=== PATIENT | male | born 1950 | race Caucasian/White ===

== ENCOUNTER 2019-11-07 21:15 | Emergency (ER) | payer BC ==
[2019-11-07] MEDS ORDERED: Tetan/Diph/Pertus SYR(Tdap)* 0.5 ML SYR(BOOSTRIX) use SYR contains LATEX IM ONE (21:36)
--- NOTE | 2019-11-07 22:08 | ED ---
Laceration/Wound HPI - HPI Summary HPI Summary: Patient complains of laceration to distal volar surface of the fifth digit of left hand while cutting garlic today. Tetanus status unknown. Denies any other pain, injury or symptoms. No anti-coag. - History of Current Complaint Stated Complaint: FINGER CUT PER PT Time Seen by Provider: 11/07/19 21:33 Hx Obtained From: Patient Mechanism of Injury: Sharp/Blunt Trauma Onset Severity: Mild Current Severity: Mild Pain Intensity: 2 Pain Scale Used: 0-10 Numeric Associated Signs & Symptoms: Pain - Allergy/Home Medications Allergies/Adverse Reactions: Allergies Allergy/AdvReac Type Severity Reaction Status Date / Time ENVIRONMENTAL Allergy Rash Uncoded 11/07/19 21:18 PMH/Surg Hx/FS Hx/Imm Hx Endocrine/Hematology History: Reports: Hx Diabetes - BORDERLINE Cardiovascular History: Denies: Hx Pacemaker/ICD Respiratory History: Denies: Other Respiratory Problems/Disorders History: Denies: Hx Dialysis Sensory History: Reports: Hx Contacts or Glasses - READING Denies: Hx Hearing Aid Opthamlomology History: Reports: Hx Contacts or Glasses - READING EENT History: Denies: Hx Deafness Neurological History: Denies: Hx Dementia - Surgical History Surgery Procedure, Year, and Place: VASECTOMY, 2010 Hx Anesthesia Reactions: No Infectious Disease History: No Infectious Disease History: Denies: Traveled Outside the [place] in Last 30 Days - Family History Known Family History: Negative: Blood Disorder - Social History Alcohol Use: Daily Alcohol Amount: 1-2 DAILY Substance Use Type: Reports: Marijuana Substance Use Comment - Amount & Last Used: DAILY Smoking Status (MU): Former Smoker Amount Used/How Often: SOCIALLY Have You Smoked in the Last Year: No Review of Systems Constitutional: Negative Eyes: Negative ENT: Negative Cardiovascular: Negative Respiratory: Negative Gastrointestinal: Negative Genitourinary: Negative Musculoskeletal: Negative Skin: Other Neurological: Negative Psychological: Normal All Other Systems Reviewed And Are Negative: Yes Physical Exam - Summary Physical Exam Summary: Avulsion laceration of volar surface of distal tip of fifth digit of left hand. Wrapped in Surgicel and, pain. One suture administered on portion that resembles laceration. Triage Information Reviewed: Yes Vital Signs On Initial Exam: Initial Vitals Temp Pulse Resp BP Pulse Ox 98.2 F 84 15 161/99 97 11/07/19 21:16 11/07/19 21:16 11/07/19 21:16 11/07/19 21:16 11/07/19 21:16 Vital Signs Reviewed: Yes Appearance: Positive: Well-Appearing Skin: Positive: Warm Head/Face: Positive: Normal Head/Face Inspection Eyes: Positive: Normal Neck: Positive: Supple Respiratory/Lung Sounds: Positive: Clear to Auscultation Cardiovascular: Positive: Normal Abdomen Description: Positive: Nontender Musculoskeletal: Positive: Normal Neurological: Positive: Normal Psychiatric: Positive: Normal AVPU Assessment: Alert - Delisa Coma Scale Best Eye Response: 4 - Spontaneous Best Motor Response: 6 - Obeys Commands Best Verbal Response: 5 - Oriented Coma Scale Total: 15 Procedures - Sedation Patient Received Moderate/Deep Sedation with Procedure: No - Laceration/Wound Repair 1 Location: upper extremity Description: Linear Anesthesia: Digital, 1.0% Length, Depth and Shape: 2cm x .5cm Irrigated w/ Saline (ccs): 300 Laceration/Wound Explored: clean Debridement: minimal Number of Sutures: 1 - 4. 0 Ethilon Layer Closure?: No Sterile Dressing Applied?: No Diagnostics - Vital Signs Vital Signs Temp Pulse Resp BP Pulse Ox 11/07/19 21:16 98.2 F 84 15 161/99 97 - Laboratory Lab Statement: Any lab studies that have been ordered have been reviewed, and results considered in the medical decision making process. Laceration Repair Course/Dx - Course Course Of Treatment: Patient complains of laceration to distal volar surface of the fifth digit of left hand while cutting garlic today. Tetanus status unknown. Denies any other pain, injury or symptoms. No anti-coag. Vital signs within normal limits. One suture placed. Remaining tissue covered with Surgicel and wrapped with Coban pressure dressing, and will be allowed to heal by secondary intention. - Clinical Impression Provider Diagnoses: Finger laceration Discharge ED - Sign-Out/Discharge Documenting (check all that apply): Patient Departure - Discharge Plan Condition: Stable Disposition: HOME Patient Education Materials: Care For Your Stitches (ED), Finger Laceration (ED ) Referrals: Desiree Muse MD [Primary Care Provider] - Additional Instructions: Remove suture in 2 days. Remove dressing Saturday morning. You may then wash wound with warm running water and soap. Do not submerge underwater for 5 days. Keep clean and dry and protected while healing. Return to the ED for any new or worsening symptoms. - Billing Disposition and Condition Condition: STABLE Disposition: Home
[2019-11-07 22:39] VITALS: BP 156/97
== END 2019-11-07 22:25 | disposition home or self-care (01) ==
LOC: ED 21:15
DX: S61.217A Laceration without foreign body of left little finger without damage to nail, initial encounter (principal); W45.8XXA Other foreign body or object entering through skin, initial encounter; Y93.G1 Activity, food preparation and clean up; Y92.9 Unspecified place or not applicable; Z23 Encounter for immunization; R73.03 Prediabetes; Z87.891 Personal history of nicotine dependence
CPT/HCPCS: 11765; 12001; 90471; 90715; 99282

== ENCOUNTER 2019-12-27 22:21 | Observation (INO) | payer BC ==
[2019-12-27] MEDS ORDERED: Aspirin 81 mg CHEW TAB* 81 MG TAB.CHEW PO ONE (22:38)
--- OUTSIDE RECORDS SUMMARY | 2019-12-27 22:50 | XMS REPORT | Continuity of Care Document ---
:1950 External Reference #:[id number] Author Name Edgardo Telles MD (transmitted by agent of provider Marcela Cross ) Address [address] [place] [address] Care Team Providers Name Role Phone Desiree Saravia MD - Family Care Team Information Chief Executive Or Managing Director [phone] Medicine Problems Description No Information Available Social History Type Date Description Comments Sex Unknown ETOH Use Occasionally consumes alcohol Tobacco Use Start: Unknown End: Patient is a former smoker Unknown Smoking Status Reviewed: 12/03/19 Patient is a former smoker Exercise Type/Frequency Exercises sporadically Allergies, Adverse Reactions, Alerts Description No Known Drug Allergies Medications Active Medications SIG Qnty Indications Ordering Provider Date Ibu-200 as needed Unknown 200mg Tablets Aspirin 81 1 by mouth every Unknown 81mg Tablets day DR Immunizations Description No Information Available Vital Signs Date Vital Result Comment 12/03/2019 10:51am Height 72 inches 6'0" Weight 197.00 lb Heart Rate 68 /min BP Systolic 152 mmHg BP Diastolic 92 mmHg Respiratory Rate 18 /min Pain Level 5 BMI (Body Mass Index) 26.7 kg/m2 08/28/2016 8:42am Height 72 inches 6'0" Weight 199.00 lb Heart Rate 66 /min BP Systolic 140 mmHg BP Diastolic 86 mmHg Respiratory Rate 16 /min Body Temperature 97.9 F BMI (Body Mass Index) 27.0 kg/m2 Results Description No Information Available Procedures Date Code Description Status 12/03/2019 Inj/Aspir Major JT Or Bursa W/ US Completed 12/03/2019 Inject/Drain Joint/Bursa Major W/O US Completed 12/03/2019 Inject/Drain Joint/Bursa Small W/O US Completed Medical Devices Description No Information Available Encounters Description No Information Available Assessments Date Code Description Provider 12/03/2019 M17.12 Unilateral primary osteoarthritis, left Edgardo Telles MD knee 12/03/2019 M25.541 Pain in joints of right hand Edgardo Telles MD 12/03/2019 M71.22 Synovial cyst of popliteal space [[place]], Edgardo Telles MD left knee Plan of Treatment 12/03/2019 - Edgardo Telles, MDM17.12 Unilateral primary osteoarthritis, left kneeFollow up:Follow up: as [id number] Pain in joints of right handM71.22 Synovial cyst of popliteal space [[place]], left knee Functional Status Description No Information Available Mental Status Description No Information Available Referrals Description No Information Available
--- OUTSIDE RECORDS SUMMARY | 2019-12-27 22:50 | XMS REPORT | Continuity of Care Document ---
:1950 External Reference #:[id number] Author Name Gareth Wallis MD Address [address] [place] [address] Care Team Providers Name Role Phone Desiree Saravia MD - Family Care Team Information Radio Tester [phone] Medicine Problems Active Problems Provider Date Mixed hyperlipidemia Onset: 02/25/2013 Benign prostatic hypertrophy without Onset: 02/25/2013 outflow obstruction Overweight Onset: 02/25/2013 Allergy to other foods Gareth Wallis MD Onset: 11/11/2019 Atopic dermatitis Gareth Wallis MD Onset: 11/11/2019 Social History Type Date Description Comments Sex Unknown Tobacco Use Start: Unknown Patient is a current smoker, smokes some marijuana days Smoking Status Reviewed: 11/11/19 Patient is a current smoker, smokes some marijuana days Allergies, Adverse Reactions, Alerts Description No Information Available Medications Active Medications SIG Qnty Indications Ordering Date Provider Triamcinolone Apply A Small Amount 80units Desiree Saravia 06/16/2018 Acetonide To Affected Area Cristel Ruiz MD 0.1% Cream Times A Day Alternating Every 20 Days With Triamcinolone Ointment Aspirin 81 Low Dose Unknown 81mg Che[place]abs Immunizations CPT Code Status Date Vaccine Lot # [id number] Given 11/04/2019 Pneumococcal Conjugate Vaccine 13 Valent For Intramuscular Use 11998 Given 10/07/2019 Fluarix Quadrivalent, Preservative Free 0.5mL 39899 Given 10/02/2018 Influenza Vaccine Split Virus Preservative Free [place] Use 85460 Given 09/04/2017 Fluarix Quadrivalent, Preservative Free 0.5mL 54368 Given 09/04/2016 Fluarix Quadrivalent, Preservative Free 0.5mL 65543 Given 02/25/2013 Tetanus, Diphtheria Toxoids/Acellular Pertussis Vaccine 7 [place] > [id number] Given 02/12/2003 Td Preservative Free For Use In Individuals 7 Yrs Or Older 84938 Given 10/25/1992 Tetanus Toxoid Adsorbed, For Intramuscular Use Vital Signs Date Vital Result Comment 11/11/2019 10:27am BP Systolic 118 mmHg BP Diastolic 78 mmHg Height 71.50 inches 5'11.50" Weight 189.00 lb BMI (Body Mass Index) 26.0 kg/m2 Heart Rate 64 /min Respiratory Rate 16 /min O2 % BldC Oximetry 98 % 11/04/2019 9:31am Weight 189.00 lb Results Test Acquired Date Facility Test Result H/L Range Note Laboratory test 11/11/2019 [facility] <pending> finding Order Order 11/11/2019 [facility] Skin Test <pending> Food Lab Results 11/04/2019 N2N/[facility]D Import Sodium 139 mmol/L 135-145 Potassium 4.1 mmol/L 3.5-5.0 Chloride 103 mmol/L 101-111 Co2 Carbon Dioxide 29 mmol/L 22-32 Anion Gap 7 mmol/L 2-11 Glucose 113 mg/dL High 70-100 Blood Urea Nitrogen 15 mg/dL 6-24 Creatinine 1.02 mg/dL 0.67-1.17 BUN/Creatinine Ratio 14.7 1 8-20 Calcium 9.3 mg/dL 8.6-10.3 Total Protein 7.4 g/dL 6.4-8.9 Albumin 4.5 g/dL 3.2-5.2 Globulin 2.9 g/dL 2-4 Albumin/Globulin Ratio 1.6 1 1-3 Total Bilirubin 0.40 mg/dL 0.2-1.0 Alkaline Phosphatase 58 U/L 34-104 Alt 15 U/L 7-52 Ast 16 U/L 13-39 Egfr Non- 72.8 1 Egfr 88.1 1 1 Lipid Profile (Trig/Chol/HDL) 11/04/2019 N2N/[facility]D Import Triglycerides 107 mg/dL 2 Cholesterol 220 mg/dL 3 HDL Cholesterol 48.2 mg/dL 4 LDL Cholesterol 150 mg/dL 5 Lab Results 11/04/2019 N2N/[facility]D Import Hemoglobin A1c (Glyco HGB) 5.5 % 4.0-5.6 6 PSA Screening 1.935 ng/mL 0-4.000 7 Lyme Screen W/ Reflex To WB <pending> 1 Because ethnic data is not always readily available, this report includes an eGFR for both -Americans and non- Americans. The National Kidney Disease Education Program (NKDEP) does not endorse the use of the MDRD equation for patients that are not between the ages of 18 and 70, are , have extremes of body size, muscle mass, or nutritional status, or are non- or non-. According to the National Kidney Foundation, irrespective of diagnosis, the stage of the disease is based on the level of kidney function: Stage Description GFR(mL/min/1.73 m(2)) 1 Kidney damage with normal or decreased GFR 90 2 Kidney damage with mild decrease in GFR 60-89 3 Moderate decrease in GFR 30-59 4 Severe decrease in GFR 15-29 5 Kidney failure <15 (or dialysis) 2 Desirable: <150 Borderline High: 150-199 High: 200-499 Very High: >500 3 Desirable: <200 Borderline High: 200-239 High: >239 4 Low: <40 Desirable: 40-60 High: >60 5 Desirable: <100 Near Optimal: 100-129 Borderline High: 130-159 High: 160-189 Very High: >189 6 Therapeutic target for the treatment of diabetes mellitus patients is <7% HBA1C, and in selective patients <6.0%. Please refer to [place] [employer] diabetic care guidelines for further information. 7 Serum levels of PSA measured using the [employer] [place] DXI Hybritech immunoassay should not be interpreted as absolute evidence of the presence or absence of disease. The PSA value should be used in conjunction with other pertinent clinical diagnostic procedures. The values obtained with different assay methods or kits cannot be used interchangeably. Procedures Date Code Description Status 11/11/2019 81419 Allergy Tests Percutaneous W/ Allergenic Extracts Completed Medical Devices Description No Information Available Encounters Description No Information Available Assessments Date Code Description Provider 11/11/2019 L20.9 Atopic dermatitis, unspecified Gareth Wallis MD 11/11/2019 Z91.018 Allergy to other foods Gareth Wallis MD Plan of Treatment No Information Available Functional Status Description No Information Available Mental Status Description No Information Available Referrals Description No Information Available
[2019-12-27] MEDS: Nitroglycerin TAB 0.4 MG* 0.4 MG TAB SL ONE (22:54)
--- NOTE | 2019-12-27 23:03 | ED ---
Back Pain - HPI Summary HPI Summary: The patient is a 69 y/o male presenting to [facility] accompanied by with a chief complaint of back and bilateral upper extremity pain this afternoon. He reports that last night he felt myalgias in the upper extremities. The pains resolved with Ibuprofen use until it returned today around 1500 with mid-back pain. At its worst, the pain was rated 6/10 in severity until it completely subsided with Ibuprofen a few hours ago. He denies any fever, nausea, diaphoresis, chest pain, or bowel or bladder incontinence. He notes a chronic cough with marijuana use, but the cough has not changed recently. He has never had a stress test. He had his flu vaccine this season. He notes that he has never had this symptoms before. PMHx: DM. No cardiac FHx. Former smoker, daily EtOH (some tonight), marijuana use. Medications reviewed, one baby ASA daily. Allergies noted. - History of Current Complaint Chief Complaint: EDBackInjuryPain Stated Complaint: ARMS AND BACK PAIN PER PT Time Seen by Provider: 12/27/19 22:38 Hx Obtained From: Patient Onset/Duration: Sudden Onset, Lasting Minutes, Resolved Onset/Duration: Started Days Ago, Resolved Back Pain Location: Is Discrete @ - mid-back, arms Severity Initially: Moderate Severity Currently: None Pain Intensity: 0 Pain Scale Used: 0-10 Numeric Character: Aching Aggravating Symptom(s): Nothing Alleviating Symptom(s): OTC Meds Associated Signs And Symptoms: Negative: Fever, Bladder Incontinence, Bowel Incontinence, Other - chest pain, shortness of breath, cough, nausea, diaphoresis - Allergies/Home Medications Allergies/Adverse Reactions: Allergies Allergy/AdvReac Type Severity Reaction Status Date / Time Fish Containing Products Allergy See Comment Verified 12/28/19 01:26 ENVIRONMENTAL Allergy Rash Uncoded 12/28/19 01:26 Home Medications: Home Medications Aspirin 81 mg PO QAM 12/28/19 [History Confirmed 12/28/19] Sildenafil Citrate [Viagra] 100 mg PO WEEKLY PRN 12/28/19 [History Confirmed 02/11] PMH/Surg Hx/FS Hx/Imm Hx Endocrine/Hematology History: Reports: Hx Diabetes - BORDERLINE Cardiovascular History: Denies: Hx Pacemaker/ICD Respiratory History: Denies: Other Respiratory Problems/Disorders History: Denies: Hx Dialysis Sensory History: Reports: Hx Contacts or Glasses - READING Denies: Hx Deafness, Hx Hearing Aid Opthamlomology History: Reports: Hx Contacts or Glasses - READING Neurological History: Denies: Hx Dementia - Surgical History Surgical History: Yes Surgery Procedure, Year, and Place: VASECTOMY, 2010 Hx Anesthesia Reactions: No Infectious Disease History: No Infectious Disease History: Denies: Traveled Outside the [place] in Last 30 Days - Family History Known Family History: Positive: Other - cancer Negative: Cardiac Disease, Blood Disorder - Social History Alcohol Use: Daily Alcohol Amount: 1-2 DAILY - wine today Hx Substance Use: Yes Substance Use Type: Reports: Marijuana Substance Use Comment - Amount & Last Used: DAILY Hx Tobacco Use: Yes Smoking Status (MU): Former Smoker Amount Used/How Often: SOCIALLY Have You Smoked in the Last Year: No - Additional Comments History Additional Comments: diabetes Review of Systems - ROS Summary Review of Systems Summary: Home Medications Medication Instructions Recorded Confirmed Type Ibuprofen TAB* [Motrin TAB* 600 MG] 600 mg PO Q4H PRN 08/14/16 08/20/16 History HYDROcodone/ACETAMIN 5-325 MG* 1 - 2 tab PO Q4H PRN #20 tab MDD 12 08/20/16 Rx [[place] 5-325 TAB*] Negative: Fever, Skin Diaphoresis Negative: Chest Pain Negative: Shortness Of Breath, Cough Negative: Nausea, Other - bowel incontinence Negative: incontinence Positive: Myalgia - back, arms All Other Systems Reviewed And Are Negative: Yes Physical Exam - Summary Physical Exam Summary: General: Well-developed, Well-nourished male. No acute distress. HEENT: Normocephalic, Atraumatic. Eyes: Conjuctiva normal, PERRL. Oropharynx: Clear, mucous membranes moist, (-) exudates. Neck: Soft, FROM, (-) lymphadenopathy, (-) thyromegaly, (-) JVD. Cardiovascular: Normal sinus rhythm, (-) murmur. Lungs: Clear to auscultation bilaterally (-) wheezes, (-) rales, (-) rhonchi. Abdomen: Soft, non-tender, non-distended, (-) organomegaly, normal bowel sounds. Back: Patient indicates pain at T6-T8 but there is no tenderness there now, (-) CVA tenderness Extremities: No edema. Skin: Warm, dry, (-) rash. Neuro: Alert and oriented x3, moves all extremities equally. No ataxia. No gait disturbance. No sensory deficit. No amnesia. Psychiatric: Mood normal, affect normal. Triage Information Reviewed: Yes Vital Signs On Initial Exam: Initial Vitals Temp Pulse Resp BP Pulse Ox 98.1 F 82 15 128/91 94 12/27/19 22:29 12/27/19 22:29 12/27/19 22:29 12/27/19 22:29 12/27/19 22:29 Vital Signs Reviewed: Yes Procedures - Sedation Patient Received Moderate/Deep Sedation with Procedure: No Diagnostics - Vital Signs Vital Signs Temp Pulse Resp BP Pulse Ox 12/27/19 22:29 98.1 F 82 15 128/91 94 - Laboratory Result Diagrams: 12/27/19 23:00 12/27/19 23:00 Lab Statement: Any lab studies that have been ordered have been reviewed, and results considered in the medical decision making process. - Radiology CXR Radiology Interpretation Completed By: ED Physician Summary of Radiographic Findings: No infiltrate. No pleural effusion. ED physician has reviewed and interpreted this report. Pending official read. - EKG 2232 Cardiac Rate: NL - 71 BPM EKG Rhythm: Sinus Rhythm Summary of EKG Findings: EKG at 2232 reveals normal sinus rhythm with rate of 71 BPM, ST elevations in V3, no STEMI. This EKG was reviewed and interpreted by Dr. Nguyen. Re-Evaluation - Re-Evaluation First Eval Re-Evaluation Time: 00:20 Comment: Patient's back pain has returned 4/10 in severity, will administer NTG and ASA Second Eval Re-Evaluation Time: 00:40 Comment: We will order a Back Pain Course/Dx - Course Course Of Treatment: 69-year-old male presents to emergency room with bilateral arm pain that goes across his upper chest. Also in his upper back. Denies any known trauma. Started last night, seemed to go away with pain medication. Came back today. Much worse tonight. Also has had some fatigue lately. No fevers chills or cough. No shortness of breath. No history of coronary artery disease. No previous stress test. Physical exam within normal limits. Workup demonstrates elevated ST in V3. Negative troponin. Patient referred to hospitalist for admission. - Diagnoses Provider Diagnoses: Acute coronary syndrome - Provider Notifications Discussed Care Of Patient With: Chely Liz - hospitalist Time Discussed With Above Provider: 00:35 Instructed by Provider To: Other - I discussed the patients case with Dr. Liz, who accepts the patient for admission. Discharge ED - Sign-Out/Discharge Documenting (check all that apply): Patient Departure - Patient accepted for admission by Dr. Liz. - Discharge Plan Condition: Stable Disposition: ADMITTED TO [facility] - Billing Disposition and Condition Condition: STABLE Disposition: Admitted to [facility] - Attestation Statements Document Initiated by Thea: Yes Documenting Scribe: Jeniffer Mckeon Provider For Whom Thea is Documenting (Include Credential): Dr. Samantha Nguyen MD Scribe Attestation: Jeniffer Musa scribed for Dr. Samantha Nguyen MD on 01/01/20 at 0218. Scribe Documentation Reviewed: Yes Provider Attestation: The documentation as recorded by the Jeniffer barnes accurately reflects the service I personally performed and the decisions made by me, Dr. Samantha Nguyen MD Status of Scribe Document: Viewed
[2019-12-27 23:12] LABS: ABS Lymphocytes 0.8 10^3/ul (1.0-4.8); ABS Monocytes 0.3 10^3/ul (0-0.8); ABS Neutrophils 5.8 10^3/ul (1.5-7.7); Eosinophil % 0.6 %; Hematocrit 40 % (42-52); Hemoglobin 13.7 g/dL (14.0-18.0); Lymphocyte % 11.8 %; Mean Corpuscular HGB Conc 34 g/dL (31-36); Mean Corpuscular Hemoglobin 32 pg (27-31); Mean Corpuscular Volume 93 fL (80-94); Mean Platelet Volume 7.6 fL (7.4-10.4); Nucleated Red Blood Cells % 0.1; Platelet Count 223 10^3/uL (150-450); Red Blood Count 4.28 10^6 /uL (4.18-5.48); Red Cell Distribution Width 14 % (10-15)
[2019-12-27 23:18] LABS: INR 0.85 (0.82-1.09)
[2019-12-27 23:30] LABS: Albumin 3.8 g/dL (3.2-5.2); Albumin/Globulin Ratio 1.5 (1-3); BUN/Creatinine Ratio 25.3 (8-20); Calcium 8.6 mg/dL (8.6-10.3); EGFR African American 91.2 (>60); EGFR Non-African American 75.4 (>60); Globulin 2.5 g/dL (2-4); Total Bilirubin 0.4 mg/dL (0.2-1.0); Total Protein 6.3 g/dL (6.4-8.9)
[2019-12-28] MEDS: Nitroglycerin TAB 0.4 MG* 0.4 MG TAB SL ONE (00:22)
[2019-12-28] MEDS ORDERED: Nitroglycerin TAB 0.4 MG* 0.4 MG TAB SL ONE (00:27)
--- NOTE | 2019-12-28 04:36 | ADMNOTE ---
Subjective Interval History: 69 yo male presented to the ED with back pain radiating to his left arm. No trauma, no tenderness to his spine. No tenderness on ROM. No hx of arthritis. Pain felt deeper to his spine, he was restless for a bit, took some ibuprofen and was able to go to sleep. The pain returned and his friend who is a physician , urged him to go get evaluated in the ED. No shortness of breath, no dizziness. He did feel a bit of chest pain at some point but it was mostly mid- back pain. His vitals are normal. EKG showed repolarization (confirmed with cardiology). Initial troponins were 0. Family History: Unchanged from Admission Social History: Unchanged from Admission Past Medical History: Unchanged from Admission Review of Systems - Measurements Intake and Output: Intake and Output Last 24 Hours 12/25/19 12/26/19 12/27/19 12/28/19 06:59 06:59 06:59 06:59 Weight 192 lb 1.6 oz - Review of Systems Constitutional Symptoms: Negative: Weight Gain, Weight Loss, Weakness, Fatigue, Fever, Night Sweats, Unexplained Falls, Other Dermatology: Negative: Normal, Rash, Skin Lesions, Cancer, Skin Lumps, Other HEENT: Negative: Normal, Change in Hearing, Vertigo, Dental Problems, Tinnitus, Sinus Problem, Other Eyes: Negative: Normal, Change in Vision, Double Vision, Eye Pain, Glaucoma, Cataract, Contacts or Glasses, Other Thyroid: Negative: Normal, Goiter, Thyroid Nodule, Cold Intolerance, Heat Intolerance , Sweatiness, Tremor, Frequent Defecation, Constipation, Palpitations, Primary Hypothyroidism, Primary Hyperthyroidism, Weight Loss, Weight Gain, Change in Skin/Hair, Change in Menstruation, Radiation Exposure, Other Pulmonary: Negative: Normal, Cough, Sputum, Hemoptysis, Wheezing, Respiratory Distress, Shortness of Breath, COPD, Asthma, Exercise Intolerance, Home Oxygen, Other Cardiology: Negative: Normal, Chest Pain, Shortness of Breath, Palpitations, Swelling of Ankles, Peripheral Vascular Dis, Edema, Faintness, Syncope, Claudication, Proximal NocturnalDyspnea, Orthopnoea, Other Gastroenterology: Negative: Normal, Abdominal Pain, Nausea, Vomiting, Anorexia, Indigestion, Difficulty Swallowing, Heartburn, Constipation, Diarrhea, Blood in Stools, Change in Bowel Habits, Haematemesis, Melena, Other Genitourinary - Male: Negative: Prostatism, Erectile Dysfunction, Family Hx of Prostate Cancer, Other Musculoskeletal: Positive: Low Back Pain Endocrinology: Negative: Normal, Thyroid Problems, Adrenal Problems, Gonadal Problems, Family Hx Endocrine Disorders, Obesity, Diabetes Mellitus, Hyperglycemia, Hx Hypoglycemia, Diabetic Foot Ulcers, Calluses, Hirsutism, Menstrual Abnormalities , Polydipsia, Polyuria, Gonadal Problems, Gynecomastia, Pituitary disease, Other Hematologic/Lymphatic: Negative: Anemia, Easy Bruising, Hx Leukemia, Hx Lymphoma, Use of Anticoagulant, Use of Antiplatelet Drugs, Other Neurology: Negative: Normal, Headache, Migraines, Change in Vision, Diplopia, Dizziness , Change in Balancing, Change in Coordination, Change in Memory, Change in Speech, Change in Sphincter Function, Change in Walking, Numbness\Paresthesiae, Unexplained Weakness, Hx of Stroke\TIA, Hx of Seizures, Other Psychiatry: Negative: Normal, Depression, Anxiety, Depressed Mood, Anhedonia, Sexual Dysfunction, Weight Change, Guilt Feelings, Tearfulness, Unusual Fatigue, Unusual Anxiety, Suicidal Ideation, Hypomania, Eating Disorders, Other Objective Vital Signs - 8 hr 12/27/19 12/27/19 12/27/19 22:29 22:47 23:00 Temperature 98.1 F Pulse Rate 82 Respiratory 15 13 14 Rate Blood Pressure 128/91 151/77 (mmHg) O2 Sat by Pulse 94 Oximetry 12/27/19 12/27/19 12/27/19 23:02 23:17 23:32 Temperature Pulse Rate Respiratory 23 13 13 Rate Blood Pressure 109/72 105/71 118/68 (mmHg) O2 Sat by Pulse Oximetry 12/27/19 12/28/19 12/28/19 23:47 00:00 00:02 Temperature Pulse Rate Respiratory 11 17 24 Rate Blood Pressure 114/70 116/72 (mmHg) O2 Sat by Pulse Oximetry 12/28/19 12/28/19 12/28/19 00:20 00:32 00:47 Temperature Pulse Rate Respiratory 17 18 15 Rate Blood Pressure 114/71 110/72 118/72 (mmHg) O2 Sat by Pulse Oximetry 12/28/19 12/28/19 12/28/19 01:00 01:02 01:17 Temperature Pulse Rate Respiratory 20 19 Rate Blood Pressure 121/71 122/72 (mmHg) O2 Sat by Pulse Oximetry 12/28/19 12/28/19 12/28/19 01:32 01:47 02:00 Temperature Pulse Rate Respiratory 13 16 13 Rate Blood Pressure 116/70 130/90 (mmHg) O2 Sat by Pulse Oximetry 12/28/19 12/28/19 12/28/19 02:02 02:03 02:17 Temperature 97.5 F Pulse Rate 73 Respiratory 11 17 13 Rate Blood Pressure 118/75 130/90 136/83 (mmHg) O2 Sat by Pulse 93 Oximetry 12/28/19 02:46 Temperature 97.9 F Pulse Rate 72 Respiratory 16 Rate Blood Pressure 114/63 (mmHg) O2 Sat by Pulse 95 Oximetry Oxygen Devices in Use Now: None Appearance: NID Eyes: No Scleral Icterus, PERRLA Ears/Nose/Mouth/Throat: NL Teeth, Lips, Gums, Mucous Membranes Moist Neck: NL Appearance and Movements; NL JVP, Trachea Midline Respiratory: Symmetrical Chest Expansion and Respiratory Effort, Clear to Auscultation, Clear to Percussion Cardiovascular: NL Sounds; No Murmurs; No JVD Abdominal: NL Sounds; No Tenderness; No Distention Lymphatic: No Cervical Adenopathy Extremities: No Edema, No Clubbing, Cyanosis, - - no spinal tenderness. No tenderness with active ROM. Skin: No Rash or Ulcers, No Nodules or Sclerosis Neurological: Alert and Oriented x 3 Result Diagrams: 12/27/19 23:00 12/27/19 23:00 Assess/Plan/Problems-Billing Assessment: - Patient Problems (1) Back pain Current Visit: Yes Status: Acute Code(s): M54.9 - DORSALGIA, UNSPECIFIED SNOMED Code(s): 515651112 Comment: sudden back pain, no trauma. No ROM tenderness, no spinal tenderness. EKG was a bit concerning, cardiology said this was repolarization and recommended to repeat a new EKG and trend troponins to be prudent (2) Full code status Current Visit: Yes Status: Acute Code(s): Z78.9 - OTHER SPECIFIED HEALTH STATUS SNOMED Code(s): 388714058 (3) DVT prophylaxis Current Visit: Yes Status: Acute Code(s): Z29.9 - ENCOUNTER FOR PROPHYLACTIC MEASURES, UNSPECIFIED SNOMED Code(s): 187126308 Comment: ambulation
[2019-12-28] MEDS ORDERED: Acetaminophen TAB* 325 MG PO PRN (08:14)
[2019-12-28] MEDS ORDERED: Iohexol 350* (CONTRAST) 500 ML MDV IV ONE (10:42)
[2019-12-28 16:19] VITALS: BP 138/80
--- NOTE | 2019-12-29 00:04 | DS ---
CC: Dr. Desiree Saravia * DISCHARGE SUMMARY: DATE OF ADMISSION: 12/27/19 DATE OF DISCHARGE: 12/28/19 PRIMARY CARE PROVIDER: Dr. Desiree Saravia. ATTENDING PROVIDER: Genie Laughlin MD * (DICTATED BY JENNIFER HAWK) PRIMARY DIAGNOSIS: Back pain, likely musculoskeletal. SECONDARY DIAGNOSES: 1. Hyperlipidemia. 2. Benign prostatic hyperplasia. HISTORY OF PRESENT ILLNESS/HOSPITAL COURSE: Graeth Meyer is a 69-year-old white male with past medical history significant for hyperlipidemia and BPH, who presented to the emergency department due to his friend's recommendation, who is a physician, due to upper back pain between the scapulae as well as bilateral upper extremity pain. The patient tells me that he had multiple episodes of this pain in between his shoulder blades leading up to this admission, but it always lasted approximately an hour and on an onset of pain, he would take Tylenol and after the Tylenol, the pain would go away. He did notice that the pain does not change with his positioning and the bilateral upper extremity pain has only occurred one other time. He is not having associated chest pain, dyspnea, dizziness, lightheadedness, chest palpitations, changes in vision when this is occurring. He had negative troponins x3 in the hospital and his EKGs were without any ischemic changes. I did perform a CTA of the chest and thorax, which was negative for dissection and by the day of discharge, the patient was not symptomatic. Given some of his risk factor of hyperlipidemia and his age, I do think it was appropriate for him to have an outpatient stress test, which has already been scheduled for tomorrow. While he is in the hospital, he did receive 324 mg of aspirin in the emergency department and overall, he had great blood pressures throughout his hospital stay. The patient had no abnormalities on telemetry and he is monitored on telemetry during the time of his hospital stay. PERTINENT STUDIES WHILE IN THE HOSPITAL: Chest x-ray, impression: No evidence for acute disease. Chest/thorax CTA: No evidence for aortic dissection. Complex cystic lesion in the thyroid gland. Recommended thyroid ultrasound for further characterization. Hepatic steatosis. PHYSICAL EXAM ON DAY OF DISCHARGE: General: Well-developed, well-nourished white male, lying upright in the hospital bed, appearing comfortable, in no acute distress. Eyes: PERRL and sclerae anicteric. ENT: Mucous membranes moist. Lungs: Clear to auscultation throughout. Cardio: Regular rate and rhythm without murmurs, rubs, or gallops. No tenderness to palpation throughout the anterior chest. Abdomen: Soft, nontender, nondistended. Musculoskeletal: No tenderness to palpation along the spinous processes along the cervical or thoracic spinous processes. Minimal tenderness to palpation in the paraspinal muscles bilaterally in the upper thoracic region. Extremities: No clubbing, cyanosis, or edema. Neuro: The patient is alert and oriented x3. Able to move all extremities. DISCHARGE PLAN: Diet: Regular unrestricted diet. Activity: The patient may return to normal activity as tolerated. The patient is to report to [facility] for stress test tomorrow morning. He is advised to follow up with his primary care provider within 1 week to discuss this hospitalization as well as the result of the stress test. He is advised to please return to the emergency department if he is experiencing severe back pain again or any chest pain especially associated with arm pain, neck pain, jaw pain, palpitations, dizziness, lightheadedness, loss of consciousness, or shortness of breath or other concerning symptoms. Additionally, at the time of followup, a thyroid ultrasound should be considered given the incidental findings on his chest CTA. The patient was advised to continue use of as needed Tylenol for back pain and if it is not improving to return to the emergency department between now and his stress test. His HEART score was 3 by my calculation. DISCHARGE MEDICATIONS: Home medications: 1. Viagra 100 mg p.o. weekly p.r.n. erectile dysfunction. 2. Aspirin 81 mg p.o. daily. 3. Tylenol 650 mg p.o. q.6 hours p.r.n. pain. CONDITION ON DISCHARGE: Stable. DISPOSITION: Home. TIME SPENT: Approximately 45 minutes was spent on this discharge, approximately half of that time was spent at bedside evaluating the patient and discussing the plan of care. JENNIFER HAWK [id number]/CPS #: [id number]
== END 2019-12-28 17:30 | disposition home or self-care (01) ==
LOC: ED 22:21 → MEDTELE 12-28 01:25
PROVIDERS: ADMIT Student in an Organized Health Care Education/Training Program; ATTEND Internal Medicine
DX: M54.9 Dorsalgia, unspecified (principal); E78.5 Hyperlipidemia, unspecified; N40.0 Benign prostatic hyperplasia without lower urinary tract symptoms; M79.603 Pain in arm, unspecified; R73.03 Prediabetes; Z87.891 Personal history of nicotine dependence; Z79.52 Long term (current) use of systemic steroids; Z79.82 Long term (current) use of aspirin; R94.31 Abnormal electrocardiogram [ECG] [EKG]; N28.89 Other specified disorders of kidney and ureter
CPT/HCPCS: 36415; 71045; 71275; 80053; 83605; 83735; 83880; 84484; 85025; 85610; 93005; 99283; A9270-GY; G0378; Q9967